=== PATIENT | female | born 1945 | race Caucasian/White ===

== ENCOUNTER 2024-05-13 15:56 | Emergency (ER) | payer MEDICARE ==
[2024-05-13 17:02] LABS: BASO # 0.04 K/mm3 (0.02-0.10); EOS # 0.02 K/mm3 (0.04-0.40); EOS % 0.3 % (1.0-5.0); HEMATOCRIT 32.8 % (37.0-47.0); HEMOGLOBIN 10.9 g/dL (12.5-16.0); LYMPH# 0.72 K/mm3 (1.50-4.00); MEAN CELL VOLUME 99 fl (78-100); MEAN CORPUSCULAR HEMOGLOBIN 33 pg (27-31); MEAN CORPUSCULAR HGB CONC 33 g/dL (33-37); MEAN PLATELET VOLUME 9.6 fl (7.4-10.4); MONO # 0.63 K/mm3 (0.20-0.80); NEU # 5.84 K/mm3 (1.40-6.50); PLATELET COUNT 266 K/mm3 (130-400); RED CELL DISTRIBUTION WIDTH 11.7 % (11.5-14.5); WHITE BLOOD COUNT 7.3 K/mm3 (4.8-10.8)
[2024-05-13 17:09] LABS: ALBUMIN 3.1 g/dL (3.4-4.8)
[2024-05-13 17:11] LABS: CALCIUM 9.3 mg/dL (8.3-10.5)
[2024-05-13 17:14] LABS: TOTAL BILIRUBIN 0.4 mg/dL (0.2-1.2)
[2024-05-13] MEDS ORDERED: Miconazole 2% Topical Powder BOTTLE TP ONE (17:15)
[2024-05-13 17:23] LABS: PH-URINE 6.5 (5.0 - 8.0); URINE APPEARANCE CLOUDY (CLEAR); URINE BILIRUBIN 2+ (NEGATIVE); URINE COLOR YELLOW (YELLOW); URINE GLUCOSE NEGATIVE (NEGATIVE); URINE KETONE 1+ (NEGATIVE); URINE PROTEIN(semi-quant) TRACE (NEGATIVE)
[2024-05-13 17:24] LABS: URINE BLOOD NEGATIVE (NEGATIVE); URINE LEUKOCYTE ESTERASE 1+ (NEGATIVE); URINE NITRATE NEGATIVE (NEGATIVE)
[2024-05-13] MEDS ORDERED: cefTRIAXone 1 G in Water For Injection,Sterile 10 ML IV SCH (17:30)
[2024-05-13] MEDS ORDERED: LEVOTHYROXINE0.05 MG PO (17:37)
== END 2024-05-13 18:38 | disposition other institution (70) ==
LOC: ED 15:56
PROVIDERS: Physician Assistant
DX: L30.4 Erythema intertrigo (principal); R53.81 Other malaise; R53.1 Weakness
CPT/HCPCS: J0696

== ENCOUNTER 2024-05-13 17:48 | Inpatient (IN) | payer MEDICARE ==
[~2024-05-13] VITALS: Ht 172.7 cm; Wt 62.3 kg
[~2024-05-13 17:48] MED LIST: LEVOTHYROXINE0.05 MG PO
[2024-05-13] MEDS ORDERED: Acetaminophen 500 MG TAB PO PRN (18:00)
[2024-05-13] MEDS ORDERED: Polyethylene Glycol 3350 Powder 17 GM PACKET PO PRN (18:00)
[2024-05-13] MEDS ORDERED: Ibuprofen 200 MG TAB PO PRN (18:00)
[2024-05-13] MEDS ORDERED: Nicotine 14 MG DAILY PATCH TD SCH (18:04)
[2024-05-13] MEDS ORDERED: Docusate Sodium 100 MG CAP PO PRN (18:15)
[2024-05-13 20:22] VITALS: BP 101/66
[2024-05-13] MEDS ORDERED: NS 1,000 ML IV SCH ×2 (20:45→21:00)
[2024-05-13] MEDS ORDERED: Miconazole 2% Topical Powder BOTTLE TP SCH (21:00)
[2024-05-13 21:56] VITALS: BP 114/73
[2024-05-13 23:53] VITALS: BP 116/71
[2024-05-14] VITALS (11 sets, daily range): BP systolic 93–118; BP diastolic 53–72
--- NOTE | 2024-05-14 08:05 | NUR ---
REPORT FROM LORAINE CUNHA. PT. SITTING IN BED. STATES THAT SHE IS FEELING A LITTLE BETTER. IVFS INFUSING. DENIES ANY NEEDS OR CONCERNS.
[2024-05-14 09:25] LABS: BASO # 0.02 K/mm3 (0.02-0.10); EOS # 0.06 K/mm3 (0.04-0.40); EOS % 1.1 % (1.0-5.0); HEMATOCRIT 29.1 % (37.0-47.0); HEMOGLOBIN 9.8 g/dL (12.5-16.0); LYMPH# 0.75 K/mm3 (1.50-4.00); MEAN CELL VOLUME 100 fl (78-100); MEAN CORPUSCULAR HEMOGLOBIN 34 pg (27-31); MEAN CORPUSCULAR HGB CONC 34 g/dL (33-37); MEAN PLATELET VOLUME 9.8 fl (7.4-10.4); MONO # 0.64 K/mm3 (0.20-0.80); NEU # 3.94 K/mm3 (1.40-6.50); PLATELET COUNT 213 K/mm3 (130-400); RED BLOOD COUNT 2.92 M/mm3 (4.10-5.30); RED CELL DISTRIBUTION WIDTH 11.9 % (11.5-14.5); WHITE BLOOD COUNT 5.4 K/mm3 (4.8-10.8)
[2024-05-14 09:34] LABS: ALBUMIN 2.5 g/dL (3.4-4.8)
[2024-05-14 09:35] LABS: CALCIUM 8.4 mg/dL (8.3-10.5)
[2024-05-14 09:36] LABS: TOTAL PROTEIN 5.7 g/dL (6.2-8.1)
[2024-05-14 09:38] LABS: TOTAL BILIRUBIN 0.3 mg/dL (0.2-1.2)
[2024-05-14] MEDS ORDERED: cefTRIAXone 1 G in Water For Injection,Sterile 10 ML IV SCH (18:00)
[2024-05-14] MEDS ORDERED: NS 1,000 ML IV SCH (19:00)
--- NOTE | 2024-05-14 19:00 | NUR ---
Report received from Licha BARON.
--- NOTE | 2024-05-14 22:00 | NUR ---
Patient resting in bed and awakened for assessment. Denies pain. Alert and oriented x 4. Incontinent of urine and changed. "hollers out during staff turning side to side and doesn't attempt to assist. Folds cleansed and powder applied followed by interdry. CNAs report redness to skin folds much improved from yesterday.
[2024-05-15] VITALS (12 sets, daily range): BP systolic 83–118; BP diastolic 50–71
--- NOTE | 2024-05-15 06:00 | NUR ---
Patient reports she slept well this noc. Denies pain.
--- NOTE | 2024-05-15 07:25 | NUR ---
Report recieved and care assumed. Pt resting in bed, denies pain at this time. Call light in reach, bed alarm on.
--- NOTE | 2024-05-15 08:59 | NUR ---
Notified MD of pt's blood pressure. Keep INT in at this time but DC fluids.
[2024-05-15] MEDS ORDERED: Cephalexin 250 MG CAP PO SCH (09:00)
[2024-05-15 09:26] LABS: BASO # 0.04 K/mm3 (0.02-0.10); EOS # 0.05 K/mm3 (0.04-0.40); EOS % 0.9 % (1.0-5.0); HEMATOCRIT 29.1 % (37.0-47.0); HEMOGLOBIN 9.7 g/dL (12.5-16.0); LYMPH# 0.94 K/mm3 (1.50-4.00); MEAN CELL VOLUME 99 fl (78-100); MEAN CORPUSCULAR HEMOGLOBIN 33 pg (27-31); MEAN CORPUSCULAR HGB CONC 33 g/dL (33-37); MEAN PLATELET VOLUME 9.9 fl (7.4-10.4); MONO # 0.78 K/mm3 (0.20-0.80); NEU # 3.79 K/mm3 (1.40-6.50); PLATELET COUNT 193 K/mm3 (130-400); RED BLOOD COUNT 2.93 M/mm3 (4.10-5.30); RED CELL DISTRIBUTION WIDTH 11.7 % (11.5-14.5); WHITE BLOOD COUNT 5.6 K/mm3 (4.8-10.8)
[2024-05-15 09:29] LABS: ALBUMIN 2.4 g/dL (3.4-4.8)
[2024-05-15 09:31] LABS: CALCIUM 8.4 mg/dL (8.3-10.5)
[2024-05-15 09:32] LABS: TOTAL PROTEIN 5.7 g/dL (6.2-8.1)
[2024-05-15 09:34] LABS: TOTAL BILIRUBIN 0.3 mg/dL (0.2-1.2)
--- NOTE | 2024-05-15 11:07 | NUR ---
Son in room with pt. Pt denies needs or concerns at this time. Call light in reach.
--- NOTE | 2024-05-15 13:13 | NUR ---
REPORT RECEIVED FROM SHIRLEY BARON. PATIENT HAS MULTIPLE VISITORS IN ROOM.
--- NOTE | 2024-05-15 13:15 | NUR ---
Report given to LORAINE Olivier and care transferred.
--- NOTE | 2024-05-15 16:06 | NUR ---
REPORTS ITCHING TO HER BACK. NO RASH OR LESIONS NOTED, HOWEVER A FEW LOOSE STRANDS OF HAIR FOUND ON MIDBACK THAT MAY BE CAUSE OF ITCHING. THESE ARE REMOVED AND LOTION APPLIED TO BACK. PATIENT REPORTS RELIEF IMMEDIATELY. CONTINUES WITH REPORT OF DECREASED APPETITE. DOES NOT FEEL ANXIOUS, BUT DOES REPORT FEELING "ANNOYED."
--- NOTE | 2024-05-15 16:46 | NUR ---
[facility] PROVIDED AND POSITIONED IN BED FOR SUPPER. RED AREAS TO BILAT BUTTOCK, NEAR TAILBONE. THESE DO NOT MARCELLA WELL PER BILLET SHEARER REPORT. BARRIER CREAM APPLIED.
--- NOTE | 2024-05-15 17:25 | NUR ---
ITCHING TO BACK RESOLVED. PATIENT VOCALIZES DESIRE TO GO HOME TOMORROW. EDUCATION REGARDING PT/OT EVAL PLANNED TOMORROW.
[2024-05-16] VITALS (12 sets, daily range): BP systolic 92–118; BP diastolic 57–72
--- NOTE | 2024-05-16 08:00 | NUR ---
PT RESTING IN BED FOR BREAKFAST. DENIES AND PAIN CURRENTLY AND STATED THAT " SHE IS JUST READY TO GO HOME." DISCUSSED WITH PT THAT WE WOULD LIKE FOR HER TO WORK WITH THERAPY TODAY AND SEE HOW SHE IS TRANSFERING. MEDICATIONS TAKEN PO. POWDER APPLIED TO SKIN FOLDS/UNDER BREASTS. INTER DRYS IN PLACE. PT REPORTS HAVING A DECREASED APPERTITE FOR A COUPLE MONTHS NOW. CIWA ASSESMENT COMPLETE. NO OTHER WANTS/NEEDS AT THIS TIME. CALL LIGHT WITHIN REACH.
[2024-05-16 09:03] LABS: BASO # 0.03 K/mm3 (0.02-0.10); EOS # 0.14 K/mm3 (0.04-0.40); EOS % 3.2 % (1.0-5.0); HEMATOCRIT 31.2 % (37.0-47.0); HEMOGLOBIN 10.1 g/dL (12.5-16.0); MEAN CELL VOLUME 100 fl (78-100); MEAN CORPUSCULAR HEMOGLOBIN 33 pg (27-31); MEAN CORPUSCULAR HGB CONC 32 g/dL (33-37); MEAN PLATELET VOLUME 9.8 fl (7.4-10.4); MONO # 0.48 K/mm3 (0.20-0.80); NEU # 2.75 K/mm3 (1.40-6.50); PLATELET COUNT 201 K/mm3 (130-400); RED BLOOD COUNT 3.11 M/mm3 (4.10-5.30); RED CELL DISTRIBUTION WIDTH 11.6 % (11.5-14.5); WHITE BLOOD COUNT 4.3 K/mm3 (4.8-10.8)
[2024-05-16 09:12] LABS: ALBUMIN 2.5 g/dL (3.4-4.8)
[2024-05-16 09:13] LABS: CALCIUM 9.1 mg/dL (8.3-10.5)
[2024-05-16 09:14] LABS: TOTAL PROTEIN 5.8 g/dL (6.2-8.1)
[2024-05-16 09:16] LABS: TOTAL BILIRUBIN 0.4 mg/dL (0.2-1.2)
[2024-05-16] MEDS ORDERED: CEPHALEXIN500 M1 PO (12:42)
--- NOTE | 2024-05-16 15:48 | NUR ---
Spoke with Aleida and her son regarding going home vs staying for swingbed. Pt OT Recommend SWB. She is reluctant and wanting to go home. Explained that falling on the floor with a 4 year old is traumatizing to the child and she should consider staying in [facility]b for therapy 2 times a day vs 3 times a week. She has fallen multiple times recently and is needing strengthening to be able to get herself off the floor. Her insurance is [employer] plan. This CM will start a prior auth for [facility] (swing bed).
[2024-05-17 00:05] VITALS: BP 116/73
[2024-05-17 02:12] VITALS: BP 104/62
[2024-05-17 04:05] VITALS: BP 115/71
[2024-05-17 05:49] VITALS: BP 110/71
--- NOTE | 2024-05-17 08:15 | NUR ---
PT UP TO CHAIR WITH 2 ASSIST. IMPORVED GAIT FROM PREVIOUS DAY. MEDICATION TAKEN PO. ASSESMENT COMPLETE. NO PAIN. PT STATED THAT TODAY FOR THE FIRST TIME IN A LONG TIME THAT SHE HAD AN APETITE. NO OTHER WANTS OR NEEDS AT THIS TIME. PT TO GET A SHOWER THIS AM. CALL LIGHT WITHIN REACH, CHAIR ALARM ON.
[2024-05-17 09:08] LABS: BASO # 0.03 K/mm3 (0.02-0.10); EOS % 4.2 % (1.0-5.0); HEMATOCRIT 30.7 % (37.0-47.0); HEMOGLOBIN 9.9 g/dL (12.5-16.0); LYMPH# 1.05 K/mm3 (1.50-4.00); MEAN CELL VOLUME 102 fl (78-100); MEAN CORPUSCULAR HEMOGLOBIN 33 pg (27-31); MEAN CORPUSCULAR HGB CONC 32 g/dL (33-37); MEAN PLATELET VOLUME 9.7 fl (7.4-10.4); MONO # 0.76 K/mm3 (0.20-0.80); NEU # 2.69 K/mm3 (1.40-6.50); PLATELET COUNT 226 K/mm3 (130-400); RED BLOOD COUNT 3.02 M/mm3 (4.10-5.30); RED CELL DISTRIBUTION WIDTH 11.7 % (11.5-14.5); WHITE BLOOD COUNT 4.8 K/mm3 (4.8-10.8)
[2024-05-17 09:13] LABS: CALCIUM 9.3 mg/dL (8.3-10.5)
[2024-05-17 09:14] LABS: TOTAL PROTEIN 6.3 g/dL (6.2-8.1)
[2024-05-17 09:16] LABS: ALBUMIN 2.7 g/dL (3.4-4.8); TOTAL BILIRUBIN 0.4 mg/dL (0.2-1.2)
[2024-05-17 10:15] VITALS: BP 128/73
--- NOTE | 2024-05-17 13:30 | NUR ---
PT SWITCHED FROM ACUTE TO SWING BED.
[2024-05-17 14:20] VITALS: BP 92/60
== END 2024-05-17 13:25 | disposition swing bed (61) | DRG 690 ==
LOC: MED/SURG 17:48
PROVIDERS: ADMIT Physician Assistant
DX: N39.0 Urinary tract infection, site not specified (principal); E87.1 Hypo-osmolality and hyponatremia; R53.1 Weakness; R53.81 Other malaise; E87.6 Hypokalemia; E83.42 Hypomagnesemia; E03.9 Hypothyroidism, unspecified; F10.10 Alcohol abuse, uncomplicated
CPT/HCPCS: J0696; J1650; J3475; J7030

== ENCOUNTER 2024-05-17 13:27 | Inpatient (IN) | payer MEDICARE ==
[~2024-05-17] VITALS: Ht 172.7 cm; Wt 65.6 kg
[~2024-05-17 13:27] MED LIST changes: +CEPHALEXIN500 M1 PO
[2024-05-17 15:00] VITALS: BP 92/60
[2024-05-17] MEDS ORDERED: Ibuprofen 200 MG TAB PO PRN (15:00)
[2024-05-17] MEDS ORDERED: Bisacodyl 5 MG TAB PO PRN (15:00)
[2024-05-17] MEDS ORDERED: Acetaminophen 500 MG TAB PO PRN (15:00)
[2024-05-17] MEDS ORDERED: Polyethylene Glycol 3350 Powder 17 GM PACKET PO PRN (15:00)
[2024-05-17] MEDS ORDERED: Folic Acid 1 MG TAB PO SCH (15:11)
[2024-05-17] MEDS ORDERED: Thiamine 100 MG TAB PO SCH (15:11)
[2024-05-17] MEDS ORDERED: Magnesium Oxide 400 MG TAB PO SCH (15:11)
[2024-05-17] MEDS ORDERED: Multivitamin TAB PO SCH (15:11)
[2024-05-17] MEDS ORDERED: Cephalexin 250 MG CAP PO SCH (17:00)
[2024-05-17] MEDS ORDERED: Docusate Sodium 100 MG CAP PO SCH (21:00)
[2024-05-17] MEDS ORDERED: Miconazole 2% Topical Powder BOTTLE TP SCH (21:00)
[2024-05-18 05:39] VITALS: BP 117/70
[2024-05-18] MEDS ORDERED: Nicotine 14 MG DAILY PATCH TD SCH (09:00)
[2024-05-18 17:25] VITALS: BP 100/68
[2024-05-19 05:31] VITALS: BP 102/65
[2024-05-19 17:14] VITALS: BP 120/66
[2024-05-20 05:24] VITALS: BP 106/57
[2024-05-20 17:04] VITALS: BP 104/64
[2024-05-21 06:11] VITALS: BP 106/63
[2024-05-21 18:01] VITALS: BP 100/52
[2024-05-22 05:24] VITALS: BP 108/68
[2024-05-22 17:05] VITALS: BP 112/67
[2024-05-23 05:55] VITALS: BP 116/69
[2024-05-23 17:05] VITALS: BP 96/59
[2024-05-24 05:30] VITALS: BP 117/70
[2024-05-24 14:05] LABS: BASO # 0.04 K/mm3 (0.02-0.10); EOS # 0.19 K/mm3 (0.04-0.40); EOS % 3.5 % (1.0-5.0); HEMATOCRIT 28.1 % (37.0-47.0); HEMOGLOBIN 8.9 g/dL (12.5-16.0); MEAN CELL VOLUME 103 fl (78-100); MEAN CORPUSCULAR HEMOGLOBIN 33 pg (27-31); MEAN CORPUSCULAR HGB CONC 32 g/dL (33-37); MEAN PLATELET VOLUME 9.5 fl (7.4-10.4); MONO # 0.49 K/mm3 (0.20-0.80); NEU # 3.88 K/mm3 (1.40-6.50); PLATELET COUNT 341 K/mm3 (130-400); RED BLOOD COUNT 2.73 M/mm3 (4.10-5.30); RED CELL DISTRIBUTION WIDTH 12.3 % (11.5-14.5); WHITE BLOOD COUNT 5.5 K/mm3 (4.8-10.8)
[2024-05-24 14:12] LABS: CALCIUM 8.9 mg/dL (8.3-10.5)
[2024-05-24 17:49] VITALS: BP 112/69
[2024-05-25 05:25] VITALS: BP 122/74
[2024-05-25] MEDS ORDERED: MAGNESIUM OXID400 MG PO (08:28)
[2024-05-25] MEDS ORDERED: PANTOPRAZOLE SO40 MG PO (08:31)
[2024-05-25] MEDS ORDERED: THIAMINE HCL100 M1 PO (08:32)
[2024-05-25] MEDS ORDERED: FOLIC ACID1 MG PO (08:32)
[2024-05-25] MEDS ORDERED: Multivitamin PO (08:39)
== END 2024-05-25 13:00 | disposition home or self-care (01) | DRG 690 ==
LOC: MED/SURG 13:27
PROVIDERS: ADMIT Family Medicine
DX: N39.0 Urinary tract infection, site not specified (principal); E87.1 Hypo-osmolality and hyponatremia; R53.1 Weakness; R53.81 Other malaise; E03.9 Hypothyroidism, unspecified; F10.10 Alcohol abuse, uncomplicated
CPT/HCPCS: J1650